=== PATIENT | male | born 1935 | race Caucasian/White ===

== ENCOUNTER 2020-07-21 16:48 | Inpatient (IN) ==
[2020-07-21] MEDS ORDERED: PANTOPRAZOLE 40 MG VIAL IV STA (19:29)
[2020-07-21] MEDS ORDERED: SODIUM CHLORIDE 0.9% 1,000 ML IV STA (19:29)
[2020-07-21] MEDS ORDERED: ONDANSETRON 4 MG/2 ML VIAL IV STA (19:29)
[2020-07-21 20:39] LABS: Basophils % 0.3 % (0.0-0.8); Eosinophils # 0.1 10*3/uL (0.0-0.87); Eosinophils % 0.8 % (0.00-10.9); Hemoglobin 15.4 GM/DL (14.0-18.0); Immature Granulocytes % 0.3 %; Immature Granulocytes Absolute 0.03 #; Lymphocytes % 20.6 % (21.2-54.2); Mean Corpuscular Volume 90.5 FL (87-102); Mean Platelet Volume 9.7 FL (9.6-12.0); Monocytes % 10.1 % (1.7-12.7); Neutrophils % 67.9 % (38.7-73.9); Platelet Count 225 T/CUMM (130-400); Red Blood Count 4.86 MC/CUMM (3.8-5.5); Red Cell Distribution Width 15.2 % (9.3-17.3); White Blood Count 9.9 T/CUMM (4-12)
[2020-07-21] MEDS ORDERED: DILTIAZEM 50 MG/10 ML VIAL IV STA (20:59)
[2020-07-21] MEDS ORDERED: ENOXAPARIN 100 MG/ML SYRINGE SUBCUT STA (21:04)
[2020-07-21 21:07] LABS: Alanine Aminotransferase 33 U/L (16-61); Albumin 3.8 G/DL (3.4-5.0); Alkaline Phosphatase 128 U/L (45-117); Amylase 31 U/L (25-115); Aspartate Amino Transferase 28 U/L (0-37); Blood Urea Nitrogen 22 MG/DL (7-18); Calcium 9.3 MG/DL (8.5-10.1); Carbon Dioxide 27 MMOL/L (21-32); Estimated Glom Filtration Rate 61 ML/MIN; Glucose 183 MG/DL (74-106); Osmolality,Calculated 282.7 MOS/KG (273-304); Potassium 3.3 MMOL/L (3.5-5.1); Sodium 138 MMOL/L (136-145); Total Protein 6.6 G/DL (6.4-8.2)
[2020-07-21] MEDS: DILTIAZEM INJ 100 MG in SODIUM CHLORIDE 0.9% 100 ML IV SCH (21:45)
[2020-07-21 22:59] LABS: Bilirubin,Urine Negative (Negative); Blood, Urine Small mg/dL (Negative); Glucose,Urine (UA) Negative (Negative); Ketones,Urine 20 mg/dL (Negative); Mucus,Urine Few /LPF (Occasional); Nitrite,Urine Positive (Negative); Protein,Urine 100 MG/DL; Squamous Epithelial Cell,Urine Occasional /HPF (0-10); Urine Appearance CLOUDY (Clear); Urine Color Amber (Yellow); Urine Specific Gravity 1.028 (1.001-1.035); Urine Urobilinogen < 2.0 EU/DL (0.2-1.0)
[2020-07-22] MEDS ORDERED: cefTRIAXone 1,000 MG in SODIUM CHLORIDE 0.9% 100 ML IV STA (02:45)
[2020-07-22] MEDS ORDERED: ALUMINUM/MAGNES/SIMETH MAX STR 30 ML UDCUP PO PRN (02:46)
[2020-07-22] MEDS ORDERED: ACETAMINOPHEN 325 MG TABLET PO PRN (02:46)
[2020-07-22] MEDS ORDERED: hydrALAZINE 20 MG/1 ML VIAL IV PRN (02:46)
[2020-07-22] MEDS ORDERED: diphenhydrAMINE CAP 25 MG CAPSULE PO PRN (02:46)
[2020-07-22] MEDS ORDERED: DEXTROSE 50% 25 GM/50 ML VIAL IV PRN (02:46)
[2020-07-22] MEDS ORDERED: GLUCAGON 1 MG VIAL IM PRN (02:46)
[2020-07-22] MEDS ORDERED: ONDANSETRON 4 MG/2 ML VIAL IV PRN (02:46)
[2020-07-22] MEDS ORDERED: guaiFENesin/DM ER 600-30 MG TABLET PO PRN (02:46)
[2020-07-22] MEDS ORDERED: MORPHINE 4 MG/1 ML VIAL IV PRN (02:46)
[2020-07-22] MEDS: SODIUM CHLORIDE 0.9% 1,000 ML IV SCH ×3 (03:00→21:12)
[2020-07-22 04:20] LABS: Calcium 8.2 MG/DL (8.5-10.1); Osmolality,Calculated 282.5 MOS/KG (273-304)
[2020-07-22 04:42] LABS: Risk Ratio 3.09; Thyroid Stimulating Hormone 0.625 uIU/ml (0.358-3.74); VLDL CHOLESTEROL 31.4 MG/DL
[2020-07-22] MEDS: POTASSIUM CHLORIDE RIDER 10 MEQ/100 ML PREMIX IV SCH ×3 (06:20→09:12)
[2020-07-22] MEDS ORDERED: POTASSIUM CHLORIDE 20 MEQ TABLET PO ONE (08:48)
[2020-07-22] MEDS: PANTOPRAZOLE 40 MG TABLET PO SCH (08:50)
[2020-07-22] MEDS ORDERED: ENOXAPARIN 100 MG/ML SYRINGE SUBCUT SCH (09:00)
[2020-07-22] MEDS: TAMSULOSIN 0.4 MG CAPSULE PO SCH (10:05)
[2020-07-22] MEDS: predniSONE 5 MG TABLET PO SCH (10:05)
[2020-07-22] MEDS: DILTIAZEM CD 120 MG CAPSULE PO SCH (13:00)
[2020-07-22] MEDS: ASCORBIC ACID 500 MG TABLET PO SCH ×2 (13:00→21:13)
[2020-07-22] MEDS: FINASTERIDE 5 MG TABLET PO SCH (21:13)
[2020-07-22] MEDS: APIXABAN 5 MG TABLET PO SCH (21:14)
[2020-07-22] MEDS: DILTIAZEM INJ 100 MG in SODIUM CHLORIDE 0.9% 100 ML IV SCH (21:19)
[2020-07-23] MEDS: SODIUM CHLORIDE 0.9% 1,000 ML IV SCH ×3 (04:22→20:30)
[2020-07-23] MEDS: cefTRIAXone 1,000 MG in SODIUM CHLORIDE 0.9% 100 ML IV SCH (04:23)
[2020-07-23 05:01] LABS: Basophils % 0.5 % (0.0-0.8); Eosinophils # 0.1 10*3/uL (0.0-0.87); Eosinophils % 2.5 % (0.00-10.9); Hematocrit 33.3 VOL% (42.0-52.0); Immature Granulocytes % 0.5 %; Immature Granulocytes Absolute 0.02 #; Lymphocytes % 25.2 % (21.2-54.2); Mean Corpuscular HGB Conc 34.5 GM/DL (32-36); Mean Corpuscular Volume 92.8 FL (87-102); Mean Platelet Volume 9.7 FL (9.6-12.0); Monocytes % 10.5 % (1.7-12.7); Neutrophils % 60.8 % (38.7-73.9); Red Cell Distribution Width 15.5 % (9.3-17.3)
[2020-07-23 05:22] LABS: Hemoglobin 11.5 GM/DL (14.0-18.0); Platelet Count 147 T/CUMM (130-400); Red Blood Count 3.59 MC/CUMM (3.8-5.5)
[2020-07-23 05:29] LABS: Albumin 2.4 G/DL (3.4-5.0); Bilirubin,Direct 0.28 MG/DL (0.0-0.20); Bilirubin,Total 1.6 MG/DL (0.2-1.0); Calcium 7.7 MG/DL (8.5-10.1); Osmolality,Calculated 280.4 MOS/KG (273-304); Potassium 3.7 MMOL/L (3.5-5.1); Total Protein 4.8 G/DL (6.4-8.2)
[2020-07-23] MEDS ORDERED: MAGNESIUM SULF RIDER 2 GM/50 ML PREMIX IV ONE (07:01)
[2020-07-23] MEDS ORDERED: MAGNESIUM SULF RIDER 2 GM/50 ML PREMIX IV PRN (07:57)
[2020-07-23] MEDS ORDERED: MAGNESIUM SULF RIDER 4 GM/100 ML PREMIX IV PRN (07:57)
[2020-07-23] MEDS: metroNIDAZOLE INJ 500 MG/100 ML PREMIX IV SCH ×2 (12:12→17:27)
[2020-07-23] MEDS: TAMSULOSIN 0.4 MG CAPSULE PO SCH (13:33)
[2020-07-23] MEDS: predniSONE 5 MG TABLET PO SCH (13:33)
[2020-07-23] MEDS: ASCORBIC ACID 500 MG TABLET PO SCH ×2 (13:34→22:45)
[2020-07-23] MEDS: PANTOPRAZOLE 40 MG TABLET PO SCH (13:34)
[2020-07-23] MEDS: APIXABAN 5 MG TABLET PO SCH ×2 (13:34→22:45)
[2020-07-23] MEDS: DILTIAZEM CD 120 MG CAPSULE PO SCH (13:34)
[2020-07-23] MEDS: DILTIAZEM INJ 100 MG in SODIUM CHLORIDE 0.9% 100 ML IV SCH (22:45)
[2020-07-23] MEDS: FINASTERIDE 5 MG TABLET PO SCH (22:45)
[2020-07-24] MEDS: SODIUM CHLORIDE 0.9% 1,000 ML IV SCH (01:59)
[2020-07-24] MEDS: metroNIDAZOLE INJ 500 MG/100 ML PREMIX IV SCH ×2 (02:13→08:47)
[2020-07-24] MEDS: cefTRIAXone 1,000 MG in SODIUM CHLORIDE 0.9% 100 ML IV SCH (03:32)
[2020-07-24 06:47] LABS: Basophils % 0.3 % (0.0-0.8); Eosinophils # 0.1 10*3/uL (0.0-0.87); Eosinophils % 1.9 % (0.00-10.9); Hematocrit 32.9 VOL% (42.0-52.0); Hemoglobin 11.8 GM/DL (14.0-18.0); Immature Granulocytes % 0.8 %; Immature Granulocytes Absolute 0.03 #; Lymphocytes # 0.8 10*3/uL (1.4-4.0); Lymphocytes % 20.6 % (21.2-54.2); Mean Corpuscular HGB Conc 35.9 GM/DL (32-36); Mean Corpuscular Volume 90.4 FL (87-102); Mean Platelet Volume 9.8 FL (9.6-12.0); Monocytes % 8.1 % (1.7-12.7); Neutrophils % 68.3 % (38.7-73.9); Platelet Count 147 T/CUMM (130-400); Red Blood Count 3.64 MC/CUMM (3.8-5.5); Red Cell Distribution Width 15.3 % (9.3-17.3); White Blood Count 3.7 T/CUMM (4-12)
[2020-07-24 07:23] LABS: Albumin 2.6 G/DL (3.4-5.0); Calcium 7.7 MG/DL (8.5-10.1); Osmolality,Calculated 283.1 MOS/KG (273-304); Potassium 3.2 MMOL/L (3.5-5.1); Total Protein 4.9 G/DL (6.4-8.2)
[2020-07-24] MEDS ORDERED: POTASSIUM CHLORIDE 20 MEQ/15 ML UDCUP PO ONE (08:04)
[2020-07-24] MEDS: ASCORBIC ACID 500 MG TABLET PO SCH (08:47)
[2020-07-24] MEDS: predniSONE 5 MG TABLET PO SCH (08:48)
[2020-07-24] MEDS: DILTIAZEM CD 120 MG CAPSULE PO SCH (08:48)
[2020-07-24] MEDS: TAMSULOSIN 0.4 MG CAPSULE PO SCH (08:48)
[2020-07-24] MEDS: APIXABAN 5 MG TABLET PO SCH (08:48)
[2020-07-24] MEDS: PANTOPRAZOLE 40 MG TABLET PO SCH (08:48)
[2020-07-24] MEDS ORDERED: lisinopriL 10 MG TABLET PO SCH (10:08)
[2020-07-24 11:56] VITALS: BP 149/76
== END 2020-07-24 14:10 | disposition home or self-care (01) | DRG 309 ==
LOC: N.ED 16:48 → N.EDINP 07-22 02:46 → SUATTDRO 07-22 02:46 → N.TELES 07-22 14:53
PROVIDERS: ADMIT Internal Medicine; ATTEND Internal Medicine

== ENCOUNTER 2022-01-12 15:55 | Inpatient (IN) ==
[2022-01-12 16:32] LABS: Basophils % 0.1 % (0.0-0.8); Hematocrit 38.3 VOL% (42.0-52.0); Hemoglobin 12.3 GM/DL (14.0-18.0); Immature Granulocytes % 0.5 %; Immature Granulocytes Absolute 0.06 #; Lymphocytes # 0.7 10*3/uL (1.4-4.0); Lymphocytes % 5.4 % (21.2-54.2); Mean Corpuscular HGB Conc 32.1 GM/DL (32-36); Mean Corpuscular Volume 94.3 FL (87-102); Mean Platelet Volume 9.5 FL (9.6-12.0); Monocytes # 1.5 10*3/uL (0.11-0.8); Monocytes % 11.6 % (1.7-12.7); Neutrophils % 82.4 % (38.7-73.9); Platelet Count 483 T/CUMM (130-400); Red Blood Count 4.06 MC/CUMM (3.8-5.5); Red Cell Distribution Width 15.4 % (9.3-17.3)
[2022-01-12] MEDS ORDERED: SODIUM CHLORIDE 0.9% 1,000 ML IV STA ×2 (16:44→18:20)
[2022-01-12 16:56] LABS: Eosinophils 11 % (0-10); Metamyelocytes 13 %; Myelocytes 66 %; Platelet Estimate Increased; Total Cells Counted 100
[2022-01-12 17:08] LABS: Albumin 2.7 G/DL (3.4-5.0); Bilirubin,Total 1.4 MG/DL (0.20-1.00); Calcium 8.4 MG/DL (8.5-10.1); Osmolality,Calculated 304.2 MOS/KG (273-304); Potassium 4.1 MMOL/L (3.5-5.1)
[2022-01-12] MEDS ORDERED: cefTRIAXone 1,000 MG in SODIUM CHLORIDE 0.9% 100 ML IV STA (17:12)
[2022-01-12 17:19] LABS: INR 1.2; Partial Thromboplastin Time 27.3 SECS (23.7-32.9)
[2022-01-12] MEDS ORDERED: hydrALAZINE 20 MG/1 ML VIAL IV PRN (18:49)
[2022-01-12] MEDS ORDERED: ONDANSETRON 4 MG/2 ML VIAL IV PRN (18:49)
[2022-01-12] MEDS ORDERED: ACETAMINOPHEN 325 MG TABLET PO PRN (18:49)
[2022-01-12] MEDS ORDERED: GLUCAGON 1 MG VIAL IM PRN (18:49)
[2022-01-12 19:15] LABS: % Iron Saturation 35.1 % (18-50)
[2022-01-12] MEDS ORDERED: DEXTROSE 10% 250 ML BAG IV PRN (19:16)
[2022-01-12 19:22] LABS: Folate 4.08 NG/ML (5.38-24.0)
[2022-01-12] MEDS: SODIUM CHLORIDE 0.9% 1,000 ML IV SCH (19:30)
[2022-01-12] MEDS: ALBUTEROL 2.5 MG/3 ML NEB RESP TX SCH (19:42)
[2022-01-12] MEDS ORDERED: PIPERACILLIN/TAZOBACTAM 3,375 MG in SODIUM CHLORIDE 0.9% 100 ML IV SCH (21:00)
[2022-01-12] MEDS ORDERED: ALBUTEROL 2.5 MG/3 ML NEB RESP TX PRN (23:00)
[2022-01-13] MEDS: busPIRone 10 MG TABLET PO SCH ×3 (02:30→21:35)
[2022-01-13] MEDS: FAMOTIDINE 20 MG TABLET PO SCH ×2 (02:30→21:35)
[2022-01-13] MEDS: APIXABAN 5 MG TABLET PO SCH ×3 (02:30→21:34)
[2022-01-13] MEDS: INSULIN REGULAR 100 UNIT/ML SUBCUT SCH ×5 (02:40→21:39)
[2022-01-13] MEDS: methylPREDNISolone SOD SUC 40 MG/1 ML VIAL IV SCH ×3 (02:47→21:37)
[2022-01-13 04:24] LABS: Hematocrit 27.6 VOL% (42.0-52.0); Immature Granulocytes % 0.4 %; Immature Granulocytes Absolute 0.02 #; Lymphocytes # 0.5 10*3/uL (1.4-4.0); Lymphocytes % 8.5 % (21.2-54.2); Mean Corpuscular HGB Conc 32.6 GM/DL (32-36); Mean Corpuscular Volume 95.2 FL (87-102); Mean Platelet Volume 9.3 FL (9.6-12.0); Monocytes # 0.4 10*3/uL (0.11-0.8); Monocytes % 6.5 % (1.7-12.7); Neutrophils % 84.6 % (38.7-73.9); Platelet Count 261 T/CUMM (130-400); Red Cell Distribution Width 15.7 % (9.3-17.3); White Blood Count 5.4 T/CUMM (4-12)
[2022-01-13 04:53] LABS: Albumin 2.1 G/DL (3.4-5.0); Bilirubin,Total 0.6 MG/DL (0.20-1.00); Osmolality,Calculated 306.4 MOS/KG (273-304); Potassium 3.8 MMOL/L (3.5-5.1); Risk Ratio 2.1; Thyroid Stimulating Hormone 0.33 uIU/ml (0.358-3.74); Total Protein 4.2 G/DL (6.4-8.2); VLDL Cholesterol 28.2 MG/DL
[2022-01-13] MEDS: ALBUTEROL 2.5 MG/3 ML NEB RESP TX SCH ×4 (07:51→19:45)
[2022-01-13] MEDS ORDERED: CYANOCOBALAMIN 100 MCG PO SCH (09:00)
[2022-01-13] MEDS ORDERED: cefTRIAXone 1,000 MG VIAL IV SCH (09:00)
[2022-01-13] MEDS ORDERED: PANTOPRAZOLE 40 MG TABLET PO SCH (09:00)
[2022-01-13] MEDS: FINASTERIDE 5 MG TABLET PO SCH (10:00)
[2022-01-13] MEDS: CYANOCOBALAMIN 500 MCG TABLET PO SCH (10:00)
[2022-01-13] MEDS: PRIMIDONE 50 MG TABLET PO SCH ×3 (10:00→21:33)
[2022-01-13] MEDS: FLECAINIDE 50 MG TABLET PO SCH ×2 (10:00→21:34)
[2022-01-13] MEDS: TAMSULOSIN 0.4 MG CAPSULE PO SCH (10:01)
[2022-01-13] MEDS: CHOLECALCIFEROL 5,000 UNIT TABLET PO SCH ×2 (10:01→21:35)
[2022-01-13] MEDS: FOLIC ACID 1 MG TABLET PO SCH (10:01)
[2022-01-13] MEDS: AZITHROMYCIN INJ 500 MG in SODIUM CHLORIDE 0.9% 250 ML IV SCH (10:08)
[2022-01-13] MEDS: MELATONIN 3 MG TABLET PO SCH (10:11)
[2022-01-13] MEDS: LACTATED RINGERS 1,000 ML IV SCH ×2 (11:00→23:42)
[2022-01-13] MEDS: MONTELUKAST 10 MG TABLET PO SCH (11:39)
[2022-01-13] MEDS: SODIUM CHLORIDE 0.9% 1,000 ML IV SCH (16:25)
[2022-01-13] MEDS: BENZONATATE 100 MG CAPSULE PO SCH ×2 (16:32→21:34)
[2022-01-13] MEDS: cefTRIAXone 1,000 MG in SODIUM CHLORIDE 0.9% 100 ML IV SCH (16:33)
[2022-01-13] MEDS: ALBUTEROL 2 MG TABLET PO SCH (21:33)
[2022-01-14] MEDS: ALBUTEROL 2.5 MG/3 ML NEB RESP TX SCH ×4 (01:15→19:00)
[2022-01-14 05:23] LABS: Hematocrit 26.6 VOL% (42.0-52.0); Hemoglobin 8.7 GM/DL (14.0-18.0); Immature Granulocytes % 0.6 %; Immature Granulocytes Absolute 0.03 #; Lymphocytes # 0.4 10*3/uL (1.4-4.0); Lymphocytes % 7.9 % (21.2-54.2); Mean Corpuscular HGB Conc 32.7 GM/DL (32-36); Mean Corpuscular Volume 95.7 FL (87-102); Mean Platelet Volume 9.5 FL (9.6-12.0); Monocytes # 0.3 10*3/uL (0.11-0.8); Monocytes % 7.1 % (1.7-12.7); Neutrophils % 84.4 % (38.7-73.9); Platelet Count 261 T/CUMM (130-400); Red Blood Count 2.78 MC/CUMM (3.8-5.5); Red Cell Distribution Width 15.2 % (9.3-17.3); White Blood Count 4.8 T/CUMM (4-12)
[2022-01-14 05:48] LABS: Albumin 2.1 G/DL (3.4-5.0); Bilirubin,Total 0.4 MG/DL (0.20-1.00); Calcium 7.8 MG/DL (8.5-10.1); Osmolality,Calculated 296.3 MOS/KG (273-304); Potassium 4.2 MMOL/L (3.5-5.1); Total Protein 4.7 G/DL (6.4-8.2)
[2022-01-14 05:52] LABS: Free T4 (Free Thyroxine) 1.09 NG/DL (0.76-1.46)
[2022-01-14] MEDS: CYANOCOBALAMIN 500 MCG TABLET PO SCH ×2 (07:36→08:42)
[2022-01-14] MEDS: PRIMIDONE 50 MG TABLET PO SCH ×4 (07:36→20:43)
[2022-01-14] MEDS: CHOLECALCIFEROL 5,000 UNIT TABLET PO SCH ×3 (07:36→20:48)
[2022-01-14] MEDS: APIXABAN 5 MG TABLET PO SCH ×3 (07:37→20:42)
[2022-01-14] MEDS: MONTELUKAST 10 MG TABLET PO SCH ×2 (07:37→08:42)
[2022-01-14] MEDS: TAMSULOSIN 0.4 MG CAPSULE PO SCH ×2 (07:37→08:42)
[2022-01-14] MEDS: FOLIC ACID 1 MG TABLET PO SCH ×2 (07:37→08:42)
[2022-01-14] MEDS: ALBUTEROL 2 MG TABLET PO SCH ×4 (07:37→20:42)
[2022-01-14] MEDS: FLECAINIDE 50 MG TABLET PO SCH ×3 (07:37→20:42)
[2022-01-14] MEDS: busPIRone 10 MG TABLET PO SCH ×3 (07:38→20:43)
[2022-01-14] MEDS: FINASTERIDE 5 MG TABLET PO SCH ×2 (07:38→08:42)
[2022-01-14] MEDS: AZITHROMYCIN INJ 500 MG in SODIUM CHLORIDE 0.9% 250 ML IV SCH ×2 (07:38→08:43)
[2022-01-14] MEDS: methylPREDNISolone SOD SUC 40 MG/1 ML VIAL IV SCH ×3 (07:38→20:42)
[2022-01-14] MEDS: LACTATED RINGERS 1,000 ML IV SCH ×3 (08:26→16:31)
[2022-01-14] MEDS: MELATONIN 3 MG TABLET PO SCH ×2 (08:42→20:51)
[2022-01-14] MEDS: INSULIN REGULAR 100 UNIT/ML SUBCUT SCH ×4 (09:01→20:46)
[2022-01-14] MEDS: BENZONATATE 100 MG CAPSULE PO SCH ×3 (09:55→20:42)
[2022-01-14] MEDS: cefTRIAXone 1,000 MG in SODIUM CHLORIDE 0.9% 100 ML IV SCH (17:14)
[2022-01-14] MEDS: FAMOTIDINE 20 MG TABLET PO SCH (20:42)
[2022-01-15] MEDS: ALBUTEROL 2.5 MG/3 ML NEB RESP TX SCH ×4 (00:45→19:05)
[2022-01-15] MEDS: LACTATED RINGERS 1,000 ML IV SCH ×4 (01:00→23:15)
[2022-01-15 05:34] LABS: Eosinophils % 0.2 % (0.00-10.9); Hematocrit 28.4 VOL% (42.0-52.0); Hemoglobin 8.9 GM/DL (14.0-18.0); Immature Granulocytes % 0.6 %; Immature Granulocytes Absolute 0.03 #; Lymphocytes # 0.6 10*3/uL (1.4-4.0); Lymphocytes % 12.3 % (21.2-54.2); Mean Corpuscular HGB Conc 31.3 GM/DL (32-36); Mean Corpuscular Volume 97.3 FL (87-102); Mean Platelet Volume 9.2 FL (9.6-12.0); Monocytes # 0.4 10*3/uL (0.11-0.8); Monocytes % 8.2 % (1.7-12.7); Neutrophils % 78.7 % (38.7-73.9); Platelet Count 260 T/CUMM (130-400); Red Blood Count 2.92 MC/CUMM (3.8-5.5); Red Cell Distribution Width 15.1 % (9.3-17.3); White Blood Count 4.9 T/CUMM (4-12)
[2022-01-15 05:55] LABS: Calcium 7.8 MG/DL (8.5-10.1); Osmolality,Calculated 292.3 MOS/KG (273-304); Potassium 4.2 MMOL/L (3.5-5.1)
[2022-01-15] MEDS: AZITHROMYCIN INJ 500 MG in SODIUM CHLORIDE 0.9% 250 ML IV SCH (10:41)
[2022-01-15] MEDS: FINASTERIDE 5 MG TABLET PO SCH (10:41)
[2022-01-15] MEDS: CYANOCOBALAMIN 500 MCG TABLET PO SCH (10:41)
[2022-01-15] MEDS: busPIRone 10 MG TABLET PO SCH ×2 (10:41→22:05)
[2022-01-15] MEDS: CHOLECALCIFEROL 5,000 UNIT TABLET PO SCH ×2 (10:41→22:07)
[2022-01-15] MEDS: MELATONIN 3 MG TABLET PO SCH (10:41)
[2022-01-15] MEDS: PRIMIDONE 50 MG TABLET PO SCH ×3 (10:42→22:05)
[2022-01-15] MEDS: MONTELUKAST 10 MG TABLET PO SCH (10:42)
[2022-01-15] MEDS: methylPREDNISolone SOD SUC 40 MG/1 ML VIAL IV SCH (10:42)
[2022-01-15] MEDS: APIXABAN 5 MG TABLET PO SCH (10:42)
[2022-01-15] MEDS: BENZONATATE 100 MG CAPSULE PO SCH ×3 (10:42→22:07)
[2022-01-15] MEDS: TAMSULOSIN 0.4 MG CAPSULE PO SCH (10:42)
[2022-01-15] MEDS: FLECAINIDE 50 MG TABLET PO SCH ×2 (10:42→22:01)
[2022-01-15] MEDS: FOLIC ACID 1 MG TABLET PO SCH (10:42)
[2022-01-15] MEDS: ALBUTEROL 2 MG TABLET PO SCH ×3 (10:48→22:04)
[2022-01-15] MEDS: INSULIN REGULAR 100 UNIT/ML SUBCUT SCH ×4 (10:50→22:07)
[2022-01-15] MEDS: cefTRIAXone 1,000 MG in SODIUM CHLORIDE 0.9% 100 ML IV SCH (17:02)
[2022-01-15] MEDS: methylPREDNISolone 4 MG TABLET PO SCH (22:04)
[2022-01-15] MEDS: FAMOTIDINE 20 MG TABLET PO SCH (22:05)
[2022-01-16] MEDS: ALBUTEROL 2.5 MG/3 ML NEB RESP TX SCH ×4 (00:46→20:00)
[2022-01-16 05:21] LABS: Eosinophils % 0.5 % (0.00-10.9); Hematocrit 26.3 VOL% (42.0-52.0); Hemoglobin 8.5 GM/DL (14.0-18.0); Immature Granulocytes % 0.8 %; Immature Granulocytes Absolute 0.03 #; Lymphocytes # 0.5 10*3/uL (1.4-4.0); Lymphocytes % 12.4 % (21.2-54.2); Mean Corpuscular HGB Conc 32.3 GM/DL (32-36); Mean Corpuscular Volume 94.3 FL (87-102); Mean Platelet Volume 9.6 FL (9.6-12.0); Monocytes # 0.3 10*3/uL (0.11-0.8); Monocytes % 8.8 % (1.7-12.7); Neutrophils % 77.5 % (38.7-73.9); Platelet Count 229 T/CUMM (130-400); Red Blood Count 2.79 MC/CUMM (3.8-5.5); Red Cell Distribution Width 14.7 % (9.3-17.3); White Blood Count 3.9 T/CUMM (4-12)
[2022-01-16 05:49] LABS: Calcium 7.8 MG/DL (8.5-10.1); Osmolality,Calculated 281.5 MOS/KG (273-304); Potassium 3.5 MMOL/L (3.5-5.1)
[2022-01-16] MEDS: PRIMIDONE 50 MG TABLET PO SCH ×3 (10:19→21:48)
[2022-01-16] MEDS: CYANOCOBALAMIN 500 MCG TABLET PO SCH (10:19)
[2022-01-16] MEDS: FINASTERIDE 5 MG TABLET PO SCH (10:19)
[2022-01-16] MEDS: methylPREDNISolone 4 MG TABLET PO SCH ×2 (10:19→21:48)
[2022-01-16] MEDS: FLECAINIDE 50 MG TABLET PO SCH ×2 (10:19→21:48)
[2022-01-16] MEDS: MONTELUKAST 10 MG TABLET PO SCH (10:20)
[2022-01-16] MEDS: ALBUTEROL 2 MG TABLET PO SCH ×3 (10:20→21:48)
[2022-01-16] MEDS: TAMSULOSIN 0.4 MG CAPSULE PO SCH (10:20)
[2022-01-16] MEDS: BENZONATATE 100 MG CAPSULE PO SCH ×3 (10:20→21:48)
[2022-01-16] MEDS: busPIRone 10 MG TABLET PO SCH ×2 (10:20→21:49)
[2022-01-16] MEDS: FOLIC ACID 1 MG TABLET PO SCH (10:21)
[2022-01-16] MEDS: INSULIN REGULAR 100 UNIT/ML SUBCUT SCH ×4 (10:21→22:00)
[2022-01-16] MEDS: CHOLECALCIFEROL 5,000 UNIT TABLET PO SCH ×2 (10:21→21:48)
[2022-01-16] MEDS: AZITHROMYCIN INJ 500 MG in SODIUM CHLORIDE 0.9% 250 ML IV SCH (10:22)
[2022-01-16] MEDS: cefTRIAXone 1,000 MG in SODIUM CHLORIDE 0.9% 100 ML IV SCH (17:30)
[2022-01-16] MEDS: LACTATED RINGERS 1,000 ML IV SCH (17:30)
[2022-01-16] MEDS: MELATONIN 3 MG TABLET PO SCH (21:48)
[2022-01-16] MEDS: PANTOPRAZOLE 40 MG VIAL IV SCH (21:59)
[2022-01-17] MEDS: ALBUTEROL 2.5 MG/3 ML NEB RESP TX SCH ×4 (01:00→19:15)
[2022-01-17 05:25] LABS: Eosinophils % 0.3 % (0.00-10.9); Hematocrit 34.3 VOL% (42.0-52.0); Hemoglobin 11.3 GM/DL (14.0-18.0); Immature Granulocytes % 0.6 %; Immature Granulocytes Absolute 0.04 #; Lymphocytes # 0.4 10*3/uL (1.4-4.0); Lymphocytes % 5.9 % (21.2-54.2); Mean Corpuscular HGB Conc 32.9 GM/DL (32-36); Mean Platelet Volume 9.4 FL (9.6-12.0); Monocytes # 0.6 10*3/uL (0.11-0.8); Monocytes % 8.6 % (1.7-12.7); Neutrophils % 84.6 % (38.7-73.9); Platelet Count 286 T/CUMM (130-400); Red Blood Count 3.69 MC/CUMM (3.8-5.5); Red Cell Distribution Width 14.7 % (9.3-17.3); White Blood Count 6.8 T/CUMM (4-12)
[2022-01-17 06:01] LABS: Osmolality,Calculated 283.4 MOS/KG (273-304); Potassium 3.4 MMOL/L (3.5-5.1)
[2022-01-17] MEDS: BENZONATATE 100 MG CAPSULE PO SCH ×3 (09:06→21:45)
[2022-01-17] MEDS: FINASTERIDE 5 MG TABLET PO SCH (09:06)
[2022-01-17] MEDS: FLECAINIDE 50 MG TABLET PO SCH ×2 (09:06→21:43)
[2022-01-17] MEDS: ALBUTEROL 2 MG TABLET PO SCH ×3 (09:06→21:46)
[2022-01-17] MEDS: methylPREDNISolone 4 MG TABLET PO SCH ×2 (09:06→21:46)
[2022-01-17] MEDS: PANTOPRAZOLE 40 MG VIAL IV SCH ×2 (09:07→21:47)
[2022-01-17] MEDS: busPIRone 10 MG TABLET PO SCH ×2 (09:07→21:46)
[2022-01-17] MEDS: MONTELUKAST 10 MG TABLET PO SCH (09:07)
[2022-01-17] MEDS: PRIMIDONE 50 MG TABLET PO SCH ×3 (09:07→21:45)
[2022-01-17] MEDS: FOLIC ACID 1 MG TABLET PO SCH (09:07)
[2022-01-17] MEDS: TAMSULOSIN 0.4 MG CAPSULE PO SCH (09:07)
[2022-01-17] MEDS: CYANOCOBALAMIN 500 MCG TABLET PO SCH (09:07)
[2022-01-17] MEDS: CHOLECALCIFEROL 5,000 UNIT TABLET PO SCH ×2 (09:07→21:47)
[2022-01-17] MEDS: INSULIN REGULAR 100 UNIT/ML SUBCUT SCH ×4 (09:08→21:48)
[2022-01-17] MEDS: AZITHROMYCIN INJ 500 MG in SODIUM CHLORIDE 0.9% 250 ML IV SCH (09:10)
[2022-01-17] MEDS ORDERED: PHENOL 1.4% THROAT SPRAY 177 ML BOTTLE PO PRN (09:38)
[2022-01-17] MEDS: guaiFENesin/DM ER 600-30 MG TABLET PO PRN ×2 (13:28→21:45)
[2022-01-17] MEDS: LACTATED RINGERS 1,000 ML IV SCH ×2 (13:28→16:50)
[2022-01-17] MEDS: cefTRIAXone 1,000 MG in SODIUM CHLORIDE 0.9% 100 ML IV SCH (17:03)
[2022-01-17] MEDS: MELATONIN 3 MG TABLET PO SCH (21:44)
[2022-01-18] MEDS: ALBUTEROL 2.5 MG/3 ML NEB RESP TX SCH ×5 (00:53→19:25)
[2022-01-18 03:58] LABS: Eosinophils % 0.6 % (0.00-10.9); Hematocrit 30.3 VOL% (42.0-52.0); Hemoglobin 9.9 GM/DL (14.0-18.0); Immature Granulocytes % 0.8 %; Immature Granulocytes Absolute 0.04 #; Lymphocytes # 0.4 10*3/uL (1.4-4.0); Lymphocytes % 7.5 % (21.2-54.2); Mean Corpuscular HGB Conc 32.7 GM/DL (32-36); Mean Corpuscular Volume 92.9 FL (87-102); Mean Platelet Volume 9.2 FL (9.6-12.0); Monocytes # 0.5 10*3/uL (0.11-0.8); Monocytes % 8.8 % (1.7-12.7); Neutrophils % 82.3 % (38.7-73.9); Platelet Count 225 T/CUMM (130-400); Red Blood Count 3.26 MC/CUMM (3.8-5.5); Red Cell Distribution Width 14.8 % (9.3-17.3); White Blood Count 5.3 T/CUMM (4-12)
[2022-01-18 04:28] LABS: Calcium 7.7 MG/DL (8.5-10.1); Osmolality,Calculated 283.8 MOS/KG (273-304); Potassium 3.4 MMOL/L (3.5-5.1)
[2022-01-18] MEDS: LACTATED RINGERS 1,000 ML IV SCH ×2 (04:58→17:27)
[2022-01-18] MEDS: INSULIN REGULAR 100 UNIT/ML SUBCUT SCH ×4 (07:30→21:57)
[2022-01-18] MEDS: PANTOPRAZOLE 40 MG VIAL IV SCH (09:00)
[2022-01-18] MEDS ORDERED: LIDOCAINE 2% 5 ML VIAL ONE (11:47)
[2022-01-18] MEDS ORDERED: propofoL 200 MG/20 ML VIAL IV ONE (11:47)
[2022-01-18] MEDS: FLECAINIDE 50 MG TABLET PO SCH ×2 (13:30→21:55)
[2022-01-18] MEDS: CYANOCOBALAMIN 500 MCG TABLET PO SCH (13:30)
[2022-01-18] MEDS: FOLIC ACID 1 MG TABLET PO SCH (13:30)
[2022-01-18] MEDS: ALBUTEROL 2 MG TABLET PO SCH ×3 (13:30→21:55)
[2022-01-18] MEDS: BENZONATATE 100 MG CAPSULE PO SCH ×3 (13:30→21:56)
[2022-01-18] MEDS: methylPREDNISolone 4 MG TABLET PO SCH ×2 (13:31→21:54)
[2022-01-18] MEDS: TAMSULOSIN 0.4 MG CAPSULE PO SCH (13:31)
[2022-01-18] MEDS: FINASTERIDE 5 MG TABLET PO SCH (13:31)
[2022-01-18] MEDS: busPIRone 10 MG TABLET PO SCH ×2 (13:31→21:56)
[2022-01-18] MEDS: PRIMIDONE 50 MG TABLET PO SCH ×3 (13:32→21:57)
[2022-01-18] MEDS: CHOLECALCIFEROL 5,000 UNIT TABLET PO SCH ×2 (13:32→21:56)
[2022-01-18] MEDS: MONTELUKAST 10 MG TABLET PO SCH (13:36)
[2022-01-18] MEDS: cefTRIAXone 1,000 MG in SODIUM CHLORIDE 0.9% 100 ML IV SCH (17:27)
[2022-01-18] MEDS: PANTOPRAZOLE 40 MG TABLET PO SCH (17:32)
[2022-01-18] MEDS: guaiFENesin/DM ER 600-30 MG TABLET PO PRN (21:55)
[2022-01-18] MEDS: MELATONIN 3 MG TABLET PO SCH (21:55)
[2022-01-19] MEDS: ALBUTEROL 2.5 MG/3 ML NEB RESP TX SCH ×2 (00:40→07:22)
[2022-01-19] MEDS: LACTATED RINGERS 1,000 ML IV SCH ×2 (02:43→12:51)
[2022-01-19] MEDS: PANTOPRAZOLE 40 MG TABLET PO SCH (05:31)
[2022-01-19] MEDS: INSULIN REGULAR 100 UNIT/ML SUBCUT SCH ×2 (09:00→12:26)
[2022-01-19] MEDS: methylPREDNISolone 4 MG TABLET PO SCH (09:01)
[2022-01-19] MEDS: PRIMIDONE 50 MG TABLET PO SCH (09:01)
[2022-01-19] MEDS: busPIRone 10 MG TABLET PO SCH (09:01)
[2022-01-19] MEDS: BENZONATATE 100 MG CAPSULE PO SCH (09:01)
[2022-01-19] MEDS: CYANOCOBALAMIN 500 MCG TABLET PO SCH (09:01)
[2022-01-19] MEDS: MONTELUKAST 10 MG TABLET PO SCH (09:01)
[2022-01-19] MEDS: CHOLECALCIFEROL 5,000 UNIT TABLET PO SCH (09:02)
[2022-01-19] MEDS: FOLIC ACID 1 MG TABLET PO SCH (09:02)
[2022-01-19] MEDS: TAMSULOSIN 0.4 MG CAPSULE PO SCH (09:02)
[2022-01-19] MEDS: FLECAINIDE 50 MG TABLET PO SCH (09:03)
[2022-01-19] MEDS: FINASTERIDE 5 MG TABLET PO SCH (09:03)
[2022-01-19] MEDS: ALBUTEROL 2 MG TABLET PO SCH (09:03)
[2022-01-19 12:04] VITALS: BP 138/62
== END 2022-01-19 14:50 | DRG 871 ==
LOC: N.ED 15:55 → N.EDINP 18:49 → SUATTDRO 18:49 → N.EDINP 01-13 14:24 → N.5E 01-13 15:11
PROVIDERS: ADMIT Internal Medicine; ATTEND Internal Medicine